=== PATIENT | male | born 1990 | race Two or more races ===

== ENCOUNTER 2019-11-03 11:09 | Emergency (ER) | payer OTHER ==
[~2019-11-03] VITALS: Ht 175.3 cm; Wt 81.6 kg
[2019-11-03 11:12] VITALS: Ht 175.3 cm; Wt 81.6 kg
[2019-11-03 11:47] VITALS: BP 116/73
== END 2019-11-03 12:45 | disposition home or self-care (01) ==
LOC: ED 11:09
DX: F10.129 Alcohol abuse with intoxication, unspecified (principal); E11.9 Type 2 diabetes mellitus without complications; F41.9 Anxiety disorder, unspecified; Y90.9 Presence of alcohol in blood, level not specified
CPT/HCPCS: 82962

== ENCOUNTER 2019-11-03 17:02 | Emergency (ER) | payer OTHER ==
[~2019-11-03] VITALS: Ht 180.3 cm; Wt 72.6 kg
[2019-11-03 18:14] VITALS: Ht 180.3 cm; Wt 72.6 kg
[2019-11-04 00:31] VITALS: BP 113/67
== END 2019-11-04 00:31 | disposition home or self-care (01) ==
LOC: ED 17:02
DX: F10.129 Alcohol abuse with intoxication, unspecified (principal); E11.9 Type 2 diabetes mellitus without complications
CPT/HCPCS: J3411; J7030